=== PATIENT | female | born 1965 | race Caucasian/White ===

== ENCOUNTER 2023-06-04 19:45 | Emergency (ER) | payer BC, OTHER ==
[~2023-06-04] VITALS: Ht 165.1 cm; Wt 82.8 kg
[2023-06-04 19:47] VITALS: BP 176/88; PULSE 82; TEMP 98.1; O2SAT 99
[2023-06-04 20:28] LABS: BILIRUBIN,URINE NEGATIVE (Neg); CLARITY,URINE CLEAR (Clear); COLOR,URINE STRAW (Yellow); GLUCOSE, URINE NEGATIVE (Neg); KETONES,URINE NEGATIVE (Neg); LEUKOCYTE ESTERASE ,URINE NEGATIVE (Neg); NITRITES, URINE NEGATIVE (Neg); OCCULT BLOOD,URINE MODERATE (Neg); PROTEIN,URINE NEGATIVE (Neg); UROBILINOGEN,URINE 0.2 E.U/dL (0.2-1.0)
[2023-06-04 20:43] LABS: UA COLLECTION TYPE CLN CATCH MIDSTREAM
[2023-06-04 20:44] LABS: SQUAMOUS EPITHELIAL CELL,UR MODERATE /LPF (FEW)
[2023-06-04 20:45] LABS: BACTERIA,URINE FEW /HPF (Neg); WBC,URINE 0-4 /HPF (0-4)
[2023-06-04 23:04] VITALS: RESP 18
--- NOTE | 2023-06-04 23:58 | NUR ---
I have reviewed and agree with all interventions, assessments performed and documented by (BOO HUTTON)
== END 2023-06-04 23:05 | disposition left against medical advice (07) ==
LOC: ER 19:46
DX: N39.498 Other specified urinary incontinence (principal); R15.9 Full incontinence of feces; Z79.899 Other long term (current) drug therapy
CPT/HCPCS: 81001; 99283

== ENCOUNTER 2023-06-05 08:13 | Emergency (ER) | payer OTHER ==
[~2023-06-05] VITALS: Ht 165.1 cm; Wt 82.7 kg
[2023-06-05 08:14] VITALS: TEMP 98.7
[2023-06-05 12:45] VITALS: BP 109/70; PULSE 82; RESP 15; O2SAT 96
== END 2023-06-05 13:02 | disposition home or self-care (01) ==
LOC: ER 08:13
DX: R32 Unspecified urinary incontinence (principal); R15.9 Full incontinence of feces; R53.1 Weakness; Z98.890 Other specified postprocedural states; Z88.1 Allergy status to other antibiotic agents; Z88.2 Allergy status to sulfonamides; Z88.6 Allergy status to analgesic agent; Z88.8 Allergy status to other drugs, medicaments and biological substances
CPT/HCPCS: 72148; 99284

== ENCOUNTER 2023-12-24 18:32 | Emergency (ER) | payer BC, OTHER ==
[~2023-12-24] VITALS: Ht 165.1 cm; Wt 84.0 kg
[2023-12-24 18:37] VITALS: BP 138/83; PULSE 63; O2SAT 100
[2023-12-24] MEDS ORDERED: ketorolac trometh inj. 60 MG/2 ML VIAL IM ONE (20:00)
[2023-12-24] MEDS ORDERED: LIDO700A32 TOP (20:01)
[2023-12-24] MEDS ORDERED: CYCL-1 PO (20:01)
[2023-12-24] MEDS ORDERED: FAMO-129 PO (20:01)
[2023-12-24] MEDS ORDERED: PRED10TA23 PO (20:01)
[2023-12-24] MEDS: dexamethasone sod phosphate 10mg/ml inj IM STA (20:08)
[2023-12-24] MEDS: diphenhydrAMINE 50 mg/ml inj IM ONE (20:08)
[2023-12-24] MEDS: cyclobenzaprine 10mg tablet PO ONE (20:34)
[2023-12-24] MEDS: famotidine 20mg tablet PO ONE (20:34)
[2023-12-24] MEDS: diphenhydrAMINE 25mg capsule PO ONE (20:36)
[2023-12-24] MEDS: dexamethasone sod phosphate 10mg/ml inj PO STA (20:36)
[2023-12-24] MEDS: ketorolac tromethamine 15mg/ml inj. IM ONE (20:37)
[2023-12-24 20:47] VITALS: RESP 18; TEMP 98
== END 2023-12-24 20:47 | disposition home or self-care (01) ==
LOC: ER 18:32
DX: T78.49XA Other allergy, initial encounter (principal); M25.562 Pain in left knee; Z88.2 Allergy status to sulfonamides; Z88.1 Allergy status to other antibiotic agents; Z88.6 Allergy status to analgesic agent; Z91.041 Radiographic dye allergy status; Z79.899 Other long term (current) drug therapy; X58.XXXA Exposure to other specified factors, initial encounter
CPT/HCPCS: 73564; 96372; 99284; J1100; J1885; Q0163

== ENCOUNTER 2024-01-15 10:17 | Emergency (ER) | payer BC, OTHER ==
[~2024-01-15] VITALS: Ht 165.1 cm; Wt 84.1 kg
[~2024-01-15 10:17] MED LIST: CYCL-1 PO; FAMO-129 PO; LIDO700A32 TOP
[2024-01-15 10:50] LABS: BASOPHILS % (AUTO) 0.6 % (0-1); EOSINOPHILS # (AUTO) 0.1 X10'3 (0-0.9); EOSINOPHILS % (AUTO) 1.2 % (0-6); HEMATOCRIT 42.1 % (35.0-45.0); HEMOGLOBIN 13.9 g/dl (12.0-16.0); LYMPHOCYTES # (AUTO) 2.2 X10'3 (1.1-4.8); MEAN CORPUSCULAR HEMOGLOBIN 28.8 PG (27.0-31.0); MEAN CORPUSCULAR VOLUME 87.2 FL (78-98); MEAN PLATELET VOLUME 7.3 FL (7.4-10.4); MONOCYTES # (AUTO) 0.5 X10'3 (0-0.9); MONOCYTES % (AUTO) 6.9 % (2-12); NEUTROPHILS # (AUTO) 3.8 X10'3 (1.8-7.7); NEUTROPHILS % (AUTO) 57.3 % (42-75); PLATELET COUNT 336 X10'3 (140-440); RED BLOOD COUNT 4.83 X10'6 (4.20-5.60); RED CELL DISTRIBUTION WIDTH 13.9 % (11.5-14.5); WHITE BLOOD COUNT 6.6 X10'3 (4.5-11.0)
[2024-01-15 10:54] LABS: BILIRUBIN,URINE NEGATIVE (Neg); CLARITY,URINE CLEAR (Clear); COLOR,URINE YELLOW (Yellow); GLUCOSE, URINE NEGATIVE (Neg); KETONES,URINE NEGATIVE (Neg); LEUKOCYTE ESTERASE ,URINE NEGATIVE (Neg); NITRITES, URINE NEGATIVE (Neg); OCCULT BLOOD,URINE MODERATE (Neg); PROTEIN,URINE NEGATIVE (Neg)
[2024-01-15 10:55] LABS: URINE HCG NEGATIVE (NEG)
[2024-01-15 11:02] LABS: UA COLLECTION TYPE CLN CATCH MIDSTREAM
[2024-01-15 11:03] LABS: BACTERIA,URINE NONE SEEN /HPF (Neg); MUCUS STRANDS NONE SEEN /LPF (Neg); RBC,URINE 20-50 /HPF (0-2); SQUAMOUS EPITHELIAL CELL,UR MODERATE /LPF (FEW); WBC,URINE 0-4 /HPF (0-4)
[2024-01-15 11:11] LABS: ALANINE AMINOTRANSFERASE 170 U/L (12-78); ALBUMIN 3.9 G/DL (3.4-5.0); ALBUMIN/GLOBULIN RATIO 0.9 (1.1-1.5); ALKALINE PHOSPHATASE 586 IU/L (46-116); ANION GAP 10 (8-16); ASPARTATE AMINO TRANSFERASE 180 U/L (10-37); BILIRUBIN,TOTAL 0.7 MG/DL (0.1-1.0); BLOOD UREA NITROGEN 11 MG/DL (7-18); BUN/CREATININE RATIO 13.4 (10.0-20.0); CALCIUM 9.7 MG/DL (8.5-10.1); CHLORIDE 101 MMOL/L (99-107); CREATININE 0.82 MG/DL (0.40-0.90); GLUCOSE 110 MG/DL (70-104); POTASSIUM 3.2 MMOL/L (3.5-5.1); SODIUM 138 MMOL/L (135-145); TOTAL PROTEIN 8.3 G/DL (6.4-8.2); eCRCL 66 ML/MIN; eGFR 71 ML/MIN
[2024-01-15 11:16] LABS: LIPASE 39 U/L (16-77); PRO BRAIN NATRIURETIC PEPTIDE 358 PG/ML (0-125)
[2024-01-15] MEDS ORDERED: iohexol 300mg/ml 100ml inj. ONE (11:57)
[2024-01-15] MEDS: normal saline 1000ML IV soln IVB ONE (13:04)
[2024-01-15] MEDS: acetaminophen 1,000mg/100ml IV 100 ML IV STA (13:04)
[2024-01-15] MEDS: ondansetron/PF 4mg/2ml inj IV ONE (13:04)
[2024-01-15 15:10] VITALS: BP 141/90; PULSE 88; RESP 14; O2SAT 96
[2024-01-15 15:26] VITALS: TEMP 98.7
== END 2024-01-15 15:28 | disposition home or self-care (01) ==
LOC: ER 10:18
DX: R94.5 Abnormal results of liver function studies (principal); R10.13 Epigastric pain; Z88.2 Allergy status to sulfonamides; Z88.1 Allergy status to other antibiotic agents; Z79.82 Long term (current) use of aspirin; Z91.041 Radiographic dye allergy status; Z79.899 Other long term (current) drug therapy
CPT/HCPCS: 36415; 74177; 80053; 81001; 81025; 83690; 83880; 84484; 85025; 93005; 96374; 96375; 99285; J0131; J2405; J3490; J7030; Q9967

== ENCOUNTER 2024-12-12 15:01 | Emergency (ER) | payer BC ==
[~2024-12-12] VITALS: Ht 162.6 cm; Wt 84.5 kg
[2024-12-12 16:03] LABS: BASOPHILS % (AUTO) 0.4 % (0-1); EOSINOPHILS # (AUTO) 0.1 X10'3 (0-0.9); EOSINOPHILS % (AUTO) 1.3 % (0-6); HEMATOCRIT 38.8 % (35.0-45.0); LYMPHOCYTES # (AUTO) 0.8 X10'3 (1.1-4.8); LYMPHOCYTES % (AUTO) 10.7 % (21-51); MEAN CORPUSCULAR HGB CONC 33.4 g/dL (33.0-36.5); MEAN CORPUSCULAR VOLUME 86.8 FL (78-98); MEAN PLATELET VOLUME 8.2 FL (7.4-10.4); MONOCYTES # (AUTO) 0.4 X10'3 (0-0.9); MONOCYTES % (AUTO) 5.2 % (2-12); NEUTROPHILS % (AUTO) 82.4 % (42-75); PLATELET COUNT 243 X10'3 (140-440); RED BLOOD COUNT 4.47 X10'6 (4.20-5.60); RED CELL DISTRIBUTION WIDTH 14.6 % (11.5-14.5); WHITE BLOOD COUNT 7.2 X10'3 (4.5-11.0)
[2024-12-12 16:19] LABS: ALANINE AMINOTRANSFERASE 42 U/L (12-78); ALBUMIN 3.6 G/DL (3.4-5.0); ALBUMIN/GLOBULIN RATIO 1.1 (1.1-1.5); ALKALINE PHOSPHATASE 289 IU/L (46-116); ANION GAP 8 (8-16); ASPARTATE AMINO TRANSFERASE 22 U/L (10-37); BILIRUBIN,TOTAL 0.4 MG/DL (0.1-1.0); BLOOD UREA NITROGEN 9 MG/DL (7-18); BUN/CREATININE RATIO 12.3 (10.0-20.0); CALCIUM 8.6 MG/DL (8.5-10.1); CHLORIDE 104 MMOL/L (99-107); CREATININE 0.73 MG/DL (0.40-0.90); GLUCOSE 80 MG/DL (70-104); SODIUM 136 MMOL/L (135-145); eCRCL 70 ML/MIN; eGFR 81 ML/MIN
[2024-12-12 16:38] LABS: BILIRUBIN,URINE NEGATIVE (Neg); CLARITY,URINE CLEAR (Clear); COLOR,URINE YELLOW (Yellow); GLUCOSE, URINE NEGATIVE (Neg); KETONES,URINE NEGATIVE (Neg); LEUKOCYTE ESTERASE ,URINE NEGATIVE (Neg); NITRITES, URINE NEGATIVE (Neg); OCCULT BLOOD,URINE MODERATE (Neg); PROTEIN,URINE NEGATIVE (Neg); UROBILINOGEN,URINE 0.2 E.U/dL (0.2-1.0)
[2024-12-12 16:41] LABS: UA COLLECTION TYPE CLN CATCH MIDSTREAM
[2024-12-12 16:47] LABS: WBC,URINE 0-4 /HPF (0-4)
[2024-12-12 16:48] LABS: BACTERIA,URINE FEW /HPF (Neg); RENAL CELLS, URINE FEW /HPF; SQUAMOUS EPITHELIAL CELL,UR FEW /LPF (FEW)
[2024-12-12 17:56] VITALS: BP 136/89; PULSE 83; TEMP 98.4; O2SAT 100
[2024-12-12] MEDS ORDERED: iohexol 300mg/ml 100ml inj. ONE (17:58)
--- NOTE | 2024-12-12 18:28 | Physician Documentation ---
History of Present Illness ~ General Chief Complaint: Multiple Medical Complaints Stated Complaint: L LEG PAIN AND KIDNEY STONE Time Seen by MD: 18:05 Primary Medical Doctor: ELLIS IBRAHIM History of Present Illness Initial Comments Patient presents to the emergency room for evaluation of back pain knee pain and head pain status post fall. She was states she was working in the [employer] yesterday and fell onto her hands and knees after tripping causing pain to her left knee. She does have history of arthroscopic surgery on affected knee. He was also hanging laundry and stepped in a hole falling directly onto her back. She does endorse history of significant back problems with surgery up and down her back. She was saw her primary care today who wanted to be evaluated for possible kidney stone. She does take gabapentin for pain. She has taken some ibuprofen last time this morning. Medication Reconciliation Allergies: Coded Allergies: Sulfa (Sulfonamide Antibiotics) (Verified Allergy, Unknown, 12/12/24) amoxicillin (Verified Allergy, Unknown, 12/12/24) aspirin (Verified Allergy, Unknown, 12/12/24) ceftriaxone sodium (Verified Allergy, Unknown, 12/12/24) ciprofloxacin (Verified Allergy, Unknown, 12/12/24) doxycycline (Verified Allergy, Unknown, 12/12/24) erythromycin base (Verified Allergy, Unknown, 06/04/23) sulfamethoxazole (Verified Allergy, Unknown, 06/04/23) trimethoprim (Verified Allergy, Unknown, 08/11/14) Scheduled Cyclobenzaprine* (Cyclobenzaprine*), 1 TAB PO HS Famotidine (Pepcid), 1 TAB PO Q12H Lidocaine (Lidoderm), 1 PATCH TOP DAILY Past Medical History Past Medical History: No Pertinent History Past Surgical History: other Lives with: Spouse Lives In: Home Review of Systems ROS All review of systems negative except as per HPI Physical Exam Physical Exam Vital Signs: Temperature: 98.4, Source: Oral, Heart Rate: 83, Respiratory Rate: 16, BP: 136/89, Pulse Oximetry: 100, Weight: 84.550 Oxygen Flow Rate: 0 Physical Exam General: Patient is awake, alert, oriented x4 in no acute distress Head: Normocephalic and atraumatic. Eyes: Conjunctival normal. EOMI. PERRL. ENT: Mucous membranes moist. Neck: Supple, trachea is midline. Chest: Clear to auscultation bilaterally without rales, rhonchi, or wheezes. There is no accessory muscle use or retractions. Cardiac: RRR without murmurs, gallops, or rubs. Abd: Soft, nondistended, nontender, with normoactive bowel sounds. No guarding, rebound, or rigidity. Extremities: Right leg normal, tenderness and swelling to left knee. Bilaterally neurovascularly intact lower extremities Back: Tenderness to palpation to bilateral lumbar spine musculature. No step- off Progress Results/Orders Results/Orders Orders - JOSELITO VÁSQUEZ MD Knee Limited (Ap/Lat) (12/12/24 18:55) Completed Orders - JOSELITO VÁSQUEZ MD Knee Silvana (Ap/Lat) (12/12/24 18:55) Ketorolac Trometh 15mg/Ml Vial (Toradol (12/12/24 18:45) Hydrocodone/Apap 5/325mg Tab ([place] 5/32 (12/12/24 18:45) Ondansetron Disint. Tablet (Zofran Odt T (12/12/24 18:45) Vital Signs 12/12/24 12/12/24 12/12/24 12/12/24 15:09 16:41 17:56 18:38 Temp 98.4 98.4 98.4 Pulse 86 75 83 Resp 16 15 16 16 B/P (MAP) 172/95 142/92 (109) 136/89 (105) Pulse Ox 99 98 100 O2 Flow Rate 0 0 Laboratory Tests Test 12/12/24 15:41 12/12/24 16:29 White Blood Count 7.2 Red Blood Count 4.47 Hemoglobin 13.0 Hematocrit 38.8 Mean Corpuscular Volume 86.8 Mean Corpuscular Hemoglobin 29.0 Mean Corpuscular Hemoglobin Concent 33.4 Red Cell Distribution Width 14.6 H Platelet Count 243 Mean Platelet Volume 8.2 Neutrophils (%) (Auto) 82.4 H Lymphocytes (%) (Auto) 10.7 L Monocytes (%) (Auto) 5.2 Eosinophils (%) (Auto) 1.3 Basophils (%) (Auto) 0.4 Neutrophils # (Auto) 6.0 Lymphocytes # (Auto) 0.8 L Monocytes # (Auto) 0.4 Eosinophils # (Auto) 0.1 Basophils # (Auto) 0.0 CBC Comment Sodium Level 136 Potassium Level 4.0 Chloride Level 104 Carbon Dioxide Level 24.0 Anion Gap 8 Blood Urea Nitrogen 9 Creatinine 0.73 Estimated GFR/1.73 m2 81 BUN/Creatinine Ratio 12.3 Glucose Level 80 Calcium Level 8.6 Total Bilirubin 0.4 Aspartate Amino Transf (AST/SGOT) 22 Alanine Aminotransferase (ALT/SGPT) 42 Alkaline Phosphatase 289 H Total Protein 7.0 Albumin 3.6 Globulin 3.4 Albumin/Globulin Ratio 1.1 Chemistry Comments Urine Specimen Description Cln catch midstream Urine Color Yellow Urine Clarity Clear Urine pH 6.0 Urine Specific [place] 1.010 Urine Protein Negative Urine Glucose (UA) Negative Urine Ketones Negative Urine Occult Blood Moderate H Urine Nitrite Negative Urine Bilirubin Negative Urine Urobilinogen 0.2 Urine Leukocyte Esterase Negative Urine RBC 3-10 Urine WBC 0-4 Urine Squamous Epithelial Cells Few Urine Renal Cells Few Urine Bacteria Few Urine Culture Indicated Not ind Volume Urine Centrifuged 10 ml Urine Comment EKG/XRAY/CT/US/VASC/MRI Bone/Soft Tissue X-Ray (Ext.) : Additional Comment Left knee series interpreted by myself shows no effusions, no fractures, no dislocations Medical Decision Making Findings Patient presented to the emergency room with back pain and knee pain as per HPI. Differentials include but are not limited to kidney stone, lumbago, fractures, kidney stone, pyelonephritis therefore emergent labs and imaging indicated. Patient was eloped before workup was complete. X-ray reassuring Departure Disposition: 07 LEFT AWOL/ELOPED Impression: Primary Impression: Lumbago Additional Impression: Knee pain Referrals: NO PRIMARY CARE PROVIDER (PCP) Signature Scribe Signature: No scribe Attestation: The note accurately reflects work and decisions made by me.Joeslito Vásquez MD 12/12/24 20:09 JOSELITO VÁSQUEZ MD December 12, 2024 18:28
[2024-12-12 18:38] VITALS: RESP 16
[2024-12-12] MEDS ORDERED: ondansetron 4mg rapidly disintigrating tab PO ONE (18:45)
[2024-12-12] MEDS ORDERED: HYDROcodone/acetaminophen 5mg/325mg tablet PO ONE (18:45)
[2024-12-12] MEDS ORDERED: ketorolac trometh 15mg/ml vial 15 MG/ML ML IM ONE (18:45)
--- NOTE | 2024-12-12 20:08 | RADIOLOGY REPORT ---
Clinical History pain Comparison None Without Contrast ANDREW RAMIREZ, [id number] TECHNIQUE: 2 views of the left knee. FINDINGS: No evidence of acute displaced fracture or dislocation. Degenerative changes of the femorotibial emily nt with marginal osteophytosis, subchondral cyst formation with narrowing of the medial compartment o f the right femorotibial joint. No significant joint effusion. The soft tissues are unremarkable. IMPRESSION: No evidence of acute osseous abnormality. Nonerosive osteoarthritis of the left knee with narrowing of the medial compartment of the femorotibi al joint This report was electronically signed by Rey Dinh MD on 12/12/2024 8:05:02 PM.
== END 2024-12-12 20:42 | disposition left against medical advice (07) ==
LOC: ER 15:02
DX: M54.50 Low back pain, unspecified (principal); M25.462 Effusion, left knee; M25.562 Pain in left knee; Z88.2 Allergy status to sulfonamides; Z88.1 Allergy status to other antibiotic agents; Z88.6 Allergy status to analgesic agent; Z79.899 Other long term (current) drug therapy
CPT/HCPCS: 36415; 73560; 80053; 81001; 85025; 99284; Q9967